=== PATIENT | female | born 1955 | race Caucasian/White ===

== ENCOUNTER 2019-10-25 13:57 | Emergency (ER) | payer MEDICAID, OTHER ==
[~2019-10-25] VITALS: Ht 154.9 cm; Wt 68.0 kg
--- NOTE | 2019-10-25 14:00 | NUR ---
PATIENT BIB EMS TO BED 1.
[2019-10-25 14:04] VITALS: BP 147/92
[2019-10-25] MEDS ORDERED: KETOROLAC 30 MG/ML VIAL IVP ONE (14:25)
--- NOTE | 2019-10-25 14:30 | NUR ---
FEW HOURS PTC BIBA PT C/O ABDOMINAL PAIN NON RADIATING .PT AWAKE ,ALERT, AMBULATORY AFEBRILE,NONTENDER ABDOMEN.NO N/V. PMHX DM .[facility]
--- NOTE | 2019-10-25 14:40 | NUR ---
DR ACEVES AT BEDSIDE.
[2019-10-25 14:50] LABS: BASOPHILS % (AUTO) 0.5 % (0.0-2.0); EOSINOPHILS % (AUTO) 0.1 % (0.0-4.0); HEMATOCRIT 42.1 % (36-48); HEMOGLOBIN 13.8 g/dL (12.0-16.0); MEAN CORPUSCULAR HEMOGLOBIN 29 pg (27-31); MEAN CORPUSCULAR HGB CONC 33 g/dL (33-37); MEAN CORPUSCULAR VOLUME 88.7 fL (80-94); MONOCYTES # (AUTO) 0.6 K/uL (0.8-1.0); MONOCYTES % (AUTO) 7.7 % (1.7-9.3); NEUTROPHILS # (AUTO) 4.8 K/uL (1.8-7.7); NEUTROPHILS % (AUTO) 64.7 % (42.2-75.2); PLATELET COUNT (AUTO) 171 K/uL (140-450); RED BLOOD CELL COUNT(AUTO) 4.75 MIL/uL (4.20-5.40); RED CELL DISTRIBUTION WIDTH 14.1 % (11.6-13.7); WHITE BLOOD COUNT (AUTO) 7.4 K/uL (4.8-10.8)
[2019-10-25 14:59] LABS: ANION GAP 14.3 (8-16); CARBON DIOXIDE 27.2 mmol/L (21-32); CREATININE 0.9 mg/dL (0.6-1.3); POTASSIUM 3.5 mmol/L (3.5-5.1)
[2019-10-25 15:04] LABS: ALBUMIN 3.3 g/dL (3.4-5.0); TOTAL BILIRUBIN 0.3 mg/dL (0.0-1.0)
[2019-10-25] MEDS ORDERED: INSULIN REGULAR, HUMAN 100 UNIT/ML VIAL SUBQ ONE (15:15)
--- NOTE | 2019-10-25 17:00 | NUR ---
Patient discharged with v/s stable. Written and verbal after care instructions given and explained. Patient verbalized understanding. Ambulatory with steady gait. All questions addressed prior to discharge. Advised to follow up with PMD.
[2019-10-25 17:04] VITALS: BP 167/83
== END 2019-10-25 17:00 | disposition home or self-care (01) ==
LOC: MED 13:57
DX: R10.13 Epigastric pain (principal); E11.9 Type 2 diabetes mellitus without complications; K21.9 Gastro-esophageal reflux disease without esophagitis; I10 Essential (primary) hypertension
CPT/HCPCS: 36415; 74176; 76705; 80053; 82948; 83690; 85025; 96372; 96374; 99284; J1815; J1885; Q0092